=== PATIENT | male | born 1980 | race Caucasian/White ===

== ENCOUNTER 2020-12-08 00:25 | Emergency (ER) | payer OTHER ==
[~2020-12-08] VITALS: Ht 177.8 cm; Wt 61.2 kg
[2020-12-08] MEDS ORDERED: AZIT250 PO (00:48)
[2020-12-08] MEDS ORDERED: PRED5 (00:48)
[2020-12-08] MEDS ORDERED: CLOBET30L (00:48)
== END 2020-12-08 01:21 | disposition home or self-care (01) ==
LOC: ER 00:25
DX: L23.7 Allergic contact dermatitis due to plants, except food (principal); Z88.8 Allergy status to other drugs, medicaments and biological substances; Z79.899 Other long term (current) drug therapy
CPT/HCPCS: 96372; 99281-25; J3301